=== PATIENT | male | born 1950 | race Caucasian/White ===

== ENCOUNTER 2022-11-02 12:05 | Outpatient (AMB) | payer MEDICARE, SELFPAY ==
--- NOTE | 2022-11-02 12:58 | A.OFFVIS_ITS ---
Intake Intake Visit Reasons: Erectile dysfunction/Complication of diabetes Intake Note: New Patient presents for initial visit erectile dysfunction Urology Medications: none Blood Thinner: none Diabetic: yes Editor At Large Required: No Accompanied by: Self / Same As Patient Allergies oats Allergy (Verified 11/03/22 15:09) Itching Penicillins Allergy (Verified 11/03/22 15:09) Hives shellfish derived Allergy (Verified 11/03/22 15:09) Hives iodone Allergy (Uncoded 11/03/22 15:09) Itching Medication List - Last Reconciled 11/03/22 by JUDI Andrade amlodipine-benazepril 5-20 mg 1 cap PO DAILY atorvastatin 20 mg PO DAILY metformin 500 mg PO BID HPI HPI Comments History of Present Illness Details Edy is a very pleasant 9-year-old male patient of Dr. Rosenthal. He has a past medical history of hypertension, diabetes, hyperlipidemia, and obesity. He presents to the office today as a new patient for erectile dysfunction and retrograde ejaculation. In discussion with the patient today reports to be doing and feeling well. He reports noting over the last 6 months to 1 year to be experiencing retrograde ejaculation and intermittent issues with maintaining erection during sexual intercourse. When asked patient does report sexual desire and reports to be able to obtain erections however reports 10% of the time to have issues maintaining his erections. Discussed at length potential causes for retrograde ejaculation as well as erectile dysfunction. Discussed and stressed the importance of managing diabetes for improvement in the symptoms as well as for overall health and well-being. Discussed further workup of erectile dysfunction as well as trial of low-dose Cialis in the setting of ED and intermittent issues of erectile dysfunction however patient declines at this time. When asked he reports to be following up with his PSA and FLAVIO is a with PCP. He denies any urinary issues or concerns at this time. When asked he denies urinary urgency, urinary frequency, incontinence, nocturia, hematuria, dysuria, foul smelling urine, changes to urinary stream, flank pain, fever, and or chills. He is happy with his current voiding parameters. He otherwise offers no other issues or concerns at this time. [facility] Medical History Diabetes mellitus Essential (primary) hypertension Hyperlipidemia Obesity (BMI 30-39.9) Review of Systems Const Reports as per [facility] Eyes Reports no additional complaints ENT Reports no additional complaints Card Reports as per [facility] Resp Reports no additional complaints GI Reports no additional complaints Reports as per [facility] Musc Reports no additional complaints Neuro Reports no additional complaints Psych Reports no additional complaints Endo Reports as per [facility] Physical Exam Const General: cooperative, healthy appearing, comfortable, no acute distress, well developed, alert and awake Orientation/consciousness: patient oriented x3 Limitations: no limitations HEENT Head: Yes normal to inspection, Yes normocephalic and Yes atraumatic Ears: hearing grossly normal bilaterally Eyes General: appearance normal, both eyes and all related structures Neck Neck: Yes normal visual inspection and Yes trachea midline Chest Chest palpation & inspection: normal inspection of the chest Resp Effort & Inspection: normal respiratory effort and able to speak in complete sentences Cardio Rate: regular rate GI Inspection: Yes normal to inspection Rectal Exam - Male: Yes deferred General: Yes no CVA tenderness Back/Spine/Pelvis Back: no CVA tenderness Skin General skin exam: no rashes or lesions noted Neuro General: patient oriented x3 Extrem General: Yes normal to inspection Psych Appearance: grossly normal and well kempt Mental Status: mental status grossly normal Speech and movement: Normal speech and movement present and Clear speech present Affect: normal affect Attitude: cooperative Thought process: Normal thought process present Thought content: Normal thought content present Insight: Fair insight present (Psych) Judgement: Fair judgement present (Psych) Results AMB Urinalysis, Automated UA Leukoctes 0 Bravo/uL Last Edit by [employer] on 11/02/22 13:15 UA Nitrite Last Edit by [employer] on 11/02/22 13:15 UA Urobilinogen 0.2 mg/dL Last Edit by [employer] on 11/02/22 13:15 UA Protein 0 mg/dL Last Edit by [employer] on 11/02/22 13:15 UA pH 6.0 Last Edit by [employer] on 11/02/22 13:15 UA Blood 0 Santy/uL Last Edit by [employer] on 11/02/22 13:15 UA Specific [place] 1.015 Last Edit by [employer] on 11/02/22 13:15 UA Ketone Negative Last Edit by [employer] on 11/02/22 13:15 UA Bilirubin 0 mg/dL Last Edit by Doyle Winslow on 11/02/22 13:15 UA Glucose 0 mg/dL Last Edit by Doyle Winslow on 11/02/22 13:15 Results Reviewed Results Reviewed: Laboratory Last Values Urine pH (Auto) 6.0 11/02/22 13:06 Specific [place] (Auto) 1.015 11/02/22 13:06 Urine Protein (Auto) 0 mg/dL 11/02/22 13:06 Glucose (UA)(Auto) 0 mg/dL 11/02/22 13:06 Urine Ketones (Auto) Negative 11/02/22 13:06 Urine Blood (Auto) 0 Santy/uL 11/02/22 13:06 Urine Bilirubin (Auto) 0 mg/dL 11/02/22 13:06 Urine Urobilinogen (Auto) 0.2 mg/dL 11/02/22 13:06 Leukocyte Esterase (Auto) 0 Bravo/uL 11/02/22 13:06 Assessment & Plan Assessment & Plan (1) Retrograde ejaculation: Code(s): N53.14 - Retrograde ejaculation (2) Erectile dysfunction associated with type 2 diabetes mellitus: Code(s): E11.69 - Type 2 diabetes mellitus with other specified complication; N52.1 - Erectile dysfunction due to diseases classified elsewhere Plan In office urinalysis results reviewed with the patient today; as noted above Discussed at length importance of managing diabetes for improvement in erectile dysfunction as well as overall health and well-being. Discussed at length potential causes for retrograde ejaculation. Patient denies any bothersome urinary issues or concerns at this time. FLAVIO offered however deferred; continue to follow-up with PCP as he has been. ED medications discussed however patient reports episodes of ED happen infrequently and will continue with lifestyle modifications and management of diabetes at this time to assist with this issue. Follow-up with Dr. Javier as planned; or sooner with any issues, concerns, and or questions. Orders: Orders AMB Urinalysis Automated 11/02/22 Z13.9 - Encounter for screening, unspecified Patient Instructions: The patient had an opportunity to ask questions regarding the treatment plan. All questions were answered. Physical exam, labs, and imaging were discussed and reviewed in detail. As well as risks, benefits, and discussion of treatment choices. No major barriers to understanding were identified. The patient expressed understanding and agreement with the above treatment plan. The patient was made aware they should contact our office by phone for worsening of their current condition, the appearance of new symptoms, or with any questions or concerns. Compliance is encouraged with any medications and follow up testing that is ordered. It is a privilege to be allowed the opportunity to participate in? your urological care.? Again, if you have any questions or concerns If you have any questions or concerns please do not hesitate to contact me. The office is [phone]. This note is constructed using voice recognition software. While every effort has been made to ensure accuracy almond paste molder errors may have been included. Yours sincerely, JUDI Andrade Coding Level of Care Code New Pt Level 3 (65205) Diagnoses Retrograde ejaculation N53.14 Erectile dysfunction associated with type 2 diabetes mellitus E11.69; N52.1
== END 2022-11-02 13:56 | disposition home or self-care (01) ==
PROVIDERS: PCP Internal Medicine; Visit Provider Nurse Practitioner Family
DX: Z13.9 Encounter for screening, unspecified (principal)
CPT/HCPCS: 99203

== ENCOUNTER → 2022-11-02 12:05 | Outpatient (BNVA) | payer MEDICARE, SELFPAY | PROVIDERS: PCP Internal Medicine; Visit Provider Nurse Practitioner Family | DX: N53.14 Retrograde ejaculation (principal); E11.69 Type 2 diabetes mellitus with other specified complication; N52.1 Erectile dysfunction due to diseases classified elsewhere | CPT/HCPCS: 81003; 99202 ==